=== PATIENT | female | born 1960 | race Caucasian/White ===

== ENCOUNTER 2017-03-23 11:24 | Emergency (ER) | payer BC ==
[~2017-03-23] VITALS: Ht 162.6 cm; Wt 189.6 kg
[2017-03-23 12:43] LABS: HEMATOCRIT 39.6 % (36.0-46.0); HEMOGLOBIN 12.1 G/DL (11.9-15.5); MCH 24.2 PG (29.0-34.0); MCHC 30.6 G/DL (30.0-36.0); MCV 79.2 FL (83-99); PLATELET COUNT 162 K/uL (156-360); RBC DIS.WIDTH-CV 16.5 % (11.8-14.6); RBC DIS.WIDTH-SD 47.4 % (39-53); WHITE BLOOD COUNT 3.7 K/uL (4.1-10.2)
[2017-03-23 13:08] LABS: ALBUMIN 3.3 g/dL (3.2-4.8); CHLORIDE 104 mEq/L (99-109); POTASSIUM 3.8 mEq/L (3.7-5.4); SODIUM 139 mEq/L (136-147)
[2017-03-23 13:11] LABS: GLUCOSE 114 mg/dL (70-99); TOTAL PROTEIN 7.7 g/dL (6.4-8.3)
[2017-03-23 13:14] LABS: ALKALINE PHOSPHATASE 76 IU/L (3-129); CREATININE 0.8 mg/dL (0.6-1.3); GFR ESTIMATE (CALCULATED) > 59 mL/min/
[2017-03-23 13:15] LABS: UREA NITROGEN (BUN) 10 mg/dL (9-23)
[2017-03-23 13:16] LABS: AST (GOT) 38 IU/L (2-34)
[2017-03-23 13:17] LABS: ALT (GPT) 28 IU/L (3-49)
[2017-03-23] MEDS ORDERED: BACTRIM,SEPT1 TABLET PO (17:48)
[2017-03-23] MEDS ORDERED: ULTRAM50 MG PO (17:49)
[2017-03-23 18:31] VITALS: BP 156/70
== END 2017-03-23 18:32 | disposition home or self-care (01) ==
LOC: EME 11:24
DX: L03.116 Cellulitis of left lower limb (principal); M79.605 Pain in left leg
CPT/HCPCS: 80053; 85027; 93971; 99281; 99285; J0696

== ENCOUNTER 2017-04-03 19:57 | Emergency (ER) | payer BC ==
[~2017-04-03] VITALS: Ht 162.6 cm; Wt 195.2 kg
[~2017-04-03 19:57] MED LIST: BACTRIM,SEPT1 TABLET PO; ULTRAM50 MG PO
[2017-04-03 21:11] LABS: HEMATOCRIT 35.5 % (36.0-46.0); MCH 24.8 PG (29.0-34.0); MCV 80.1 FL (83-99); PLATELET COUNT 273 K/uL (156-360); RBC DIS.WIDTH-CV 16.9 % (11.8-14.6); RED BLOOD COUNT 4.43 M/uL (3.80-5.20); WHITE BLOOD COUNT 7.6 K/uL (4.1-10.2)
[2017-04-03 21:17] LABS: INTER. NORMALIZED RATIO 1.2
[2017-04-03 21:28] LABS: CHLORIDE 109 mEq/L (99-109); SODIUM 143 mEq/L (136-147)
[2017-04-03 21:29] LABS: GLUCOSE 114 mg/dL (70-99)
[2017-04-03 21:30] LABS: POTASSIUM 4.6 mEq/L (3.7-5.4)
[2017-04-03 21:33] LABS: GFR ESTIMATE (CALCULATED) > 59 mL/min/
[2017-04-03 21:34] LABS: UREA NITROGEN (BUN) 23 mg/dL (9-23)
[2017-04-03] MEDS ORDERED: PERCOCET 5/31 TABLET PO (23:57)
[2017-04-04 00:26] VITALS: BP 122/72
== END 2017-04-04 00:25 | disposition home or self-care (01) ==
LOC: EME 19:57
PROVIDERS: Physician Assistant
DX: R10.32 Left lower quadrant pain (principal); L03.116 Cellulitis of left lower limb; Z88.8 Allergy status to other drugs, medicaments and biological substances
CPT/HCPCS: 72192; 73502; 80048; 85027; 85610; 93971; 99281; 99284

== ENCOUNTER 2017-05-01 17:17 | Emergency (ER) | payer BC ==
[~2017-05-01] VITALS: Ht 162.6 cm; Wt 186.2 kg
[~2017-05-01 17:17] MED LIST changes: +PERCOCET 5/31 TABLET PO
[2017-05-01 18:14] LABS: HEMATOCRIT 31.7 % (36.0-46.0); HEMOGLOBIN 9.7 G/DL (11.9-15.5); MCH 24.9 PG (29.0-34.0); MCHC 30.6 G/DL (30.0-36.0); MCV 81.3 FL (83-99); PLATELET COUNT 304 K/uL (156-360); RBC DIS.WIDTH-CV 17.8 % (11.8-14.6); RBC DIS.WIDTH-SD 52.4 % (39-53); WHITE BLOOD COUNT 7.6 K/uL (4.1-10.2)
[2017-05-01 18:24] LABS: ALBUMIN 3.5 g/dL (3.2-4.8)
[2017-05-01 18:25] LABS: CHLORIDE 108 mEq/L (99-109); POTASSIUM 3.5 mEq/L (3.7-5.4); SODIUM 140 mEq/L (136-147)
[2017-05-01 18:27] LABS: GLUCOSE 97 mg/dL (70-99); TOTAL PROTEIN 8.2 g/dL (6.4-8.3)
[2017-05-01 18:29] LABS: TOTAL BILIRUBIN 0.6 mg/dL (0.0-1.0)
[2017-05-01 18:30] LABS: ALKALINE PHOSPHATASE 107 IU/L (3-129)
[2017-05-01 18:31] LABS: CREATININE 0.8 mg/dL (0.6-1.3); GFR ESTIMATE (CALCULATED) > 59 mL/min/
[2017-05-01 18:32] LABS: AST (GOT) 23 IU/L (2-34); UREA NITROGEN (BUN) 17 mg/dL (9-23)
[2017-05-01 18:34] LABS: ALT (GPT) 16 IU/L (3-49)
[2017-05-01] MEDS ORDERED: PROVERA,CYCRIN10 MG PO (21:05)
[2017-05-01 21:31] VITALS: BP 187/76
== END 2017-05-01 21:32 | disposition home or self-care (01) ==
LOC: EME 17:17
PROVIDERS: Nurse Practitioner Family
DX: N93.9 Abnormal uterine and vaginal bleeding, unspecified (principal); Z88.8 Allergy status to other drugs, medicaments and biological substances
CPT/HCPCS: 76856; 80053; 85027; 87210; 99281; 99284